=== PATIENT | male | born 1970 | race Caucasian/White ===

== ENCOUNTER → 2018-02-14 13:01 | Outpatient (CLI) | payer OTHER | END | disposition home or self-care (01) | LOC: D.RAD 13:00 | DX: Z02.71 Encounter for disability determination (principal) ==

== ENCOUNTER → 2020-02-28 08:53 | Outpatient (CLI) | payer MEDICAID | END | disposition home or self-care (01) | LOC: D.MRI 08:53 | PROVIDERS: ATTEND Nurse Practitioner Family | DX: M25.561 Pain in right knee (principal) ==